=== PATIENT | male | born 1970 | race Caucasian/White ===

== ENCOUNTER 2019-12-09 13:42 | Observation (INO) | payer SELFPAY ==
--- NOTE | 2019-12-09 14:08 | ER Document Report ---
ED Medical Screen (RME) - General Stated Complaint: CHEST PAIN Time Seen by Provider: 12/09/19 13:55 TRAVEL OUTSIDE OF THE [place] IN LAST 30 DAYS: No - HPI Notes: 12/09/19 13:56 49 yr old male presents today with complaints of left-sided chest pain, kft sided chest tightness that started to radiate down his left arm while he was driving approximately an hour ago. Patient states that he has had intermittent chest pain over the last few weeks but is never had it checked out and is ignored it. His blood pressure when EMS arrived was systolically over the 200s, was given 2 nitros which relieved his chest pain from a 5/5 to a 1/5. Patient states that his father has had 2 heart attacks and his grandfather had 6 heart attacks, passing away on 6 1. Patient is a smoker, states he had stage I lung cancer last year which was surgically resected. Patient was given 324 baby aspirin and 2 nitro's by EMS. Patient's blood pressure has now normalized to 120s over 80s, heart rate is still in the 120s. Denies any nausea vomiting diarrhea. Denies any headache, blurred vision double vision or loss of vision, shortness of breath, numbness or tingling to face or bilateral upper or lower extremities. I have greeted and performed a rapid initial assessment of this patient. A comprehensive ED assessment and evaluation of the patient, analysis of test results and completion of the medical decision making process will be conducted by additional ED providers. PHYSICAL EXAMINATION: GENERAL: Well-appearing, well-nourished and in no acute distress. HEAD: Atraumatic, normocephalic. EYES: Pupils equal round extraocular movements intact, conjunctiva are normal. NECK: Normal range of motion CV: s1, s2 regular LUNGS: No respiratory distress Musculoskeletal: Normal range of motion NEUROLOGICAL: Normal speech, normal gait. SKIN: Warm, Dry, normal turgor, no rashes or lesions noted. - Related Data Allergies/Adverse Reactions: No Known Allergies Allergy (Verified 04/24/15 14:14) Past Medical History Renal/ Medical History: Reports: Hx Kidney Stones - Immunizations Hx Diphtheria, Pertussis, Tetanus Vaccination: Yes
[2019-12-09 14:34] LABS: ABSOLUTE BASOPHILS # (AUTO) 0.1 10^3/uL (0.0-0.2); ABSOLUTE EOSINOPHILS # (AUTO) 0.1 10^3/uL (0.0-0.6); ABSOLUTE LYMPHOCYTES (AUTO) 1.7 10^3/uL (0.5-4.7); ABSOLUTE MONOCYTES (AUTO) 0.5 10^3/uL (0.1-1.4); ABSOLUTE NEUT (AUTO) 6.2 10^3/uL (1.7-8.2); EOSINOPHILS % (AUTO) 1.3 % (0-6); HEMATOCRIT 47.9 % (37.9-51.0); HEMOGLOBIN 16.8 g/dL (13.5-17.0); LYMPHOCYTES % (AUTO) 19.4 % (13-45); MEAN CORPUSCULAR HEMOGLOBIN 33.6 pg (27.0-33.4); MEAN CORPUSCULAR VOLUME 96 fl (80-97); MONOCYTES % (AUTO) 5.7 % (3-13); PLATELET COUNT 154 10^3/uL (150-450); RED BLOOD COUNT 4.99 10^6/uL (4.35-5.55); RED CELL DISTRIBUTION WIDTH 14.1 % (11.5-14.0); SEGMENTED NEUTROPHILS % (AUTO) 72.6 % (42-78); TOTAL CELLS COUNTED % (AUTO) 100 %; WHITE BLOOD COUNT 8.5 10^3/uL (4.0-10.5)
[2019-12-09 14:51] LABS: ALBUMIN 4.3 g/dL (3.5-5.0); ALKALINE PHOSPHATASE 67 U/L (38-126); ANION GAP 7 (5-19); ASPARTATE AMINO TRANSFERASE 51 U/L (17-59); BILIRUBIN,DIRECT 0.4 mg/dL (0.0-0.4); BILIRUBIN,TOTAL 0.6 mg/dL (0.2-1.3); BLOOD UREA NITROGEN 9 mg/dL (7-20); CALCIUM 9.6 mg/dL (8.4-10.2); CARBON DIOXIDE 25 mmol/L (22-30); CHLORIDE 105 mmol/L (98-107); CREATINE KINASE 103 U/L (55-170); GLUCOSE 141 mg/dL (75-110); POTASSIUM 4.5 mmol/L (3.6-5.0); TOTAL PROTEIN 7.4 g/dL (6.3-8.2)
--- NOTE | 2019-12-09 15:00 | RADIOLOGY REPORT (SQ) ---
EXAM DESCRIPTION: CHEST SINGLE VIEW IMAGES COMPLETED DATE/TIME: 12/09/2019 2:51 pm REASON FOR STUDY: cp COMPARISON: None. EXAM PARAMETERS: NUMBER OF VIEWS: One view. TECHNIQUE: Single frontal radiographic view of the chest acquired. RADIATION DOSE: NA LIMITATIONS: None. FINDINGS: LUNGS AND PLEURA: No opacities, masses or pneumothorax. No pleural effusion. MEDIASTINUM AND HILAR STRUCTURES: No masses. Contour normal. HEART AND VASCULAR STRUCTURES: Heart normal in size. Normal vasculature. BONES: No acute findings. HARDWARE: None in the chest. OTHER: No other significant finding. IMPRESSION: NO ACUTE RADIOGRAPHIC FINDING IN THE CHEST. TECHNICAL DOCUMENTATION: JOB ID: [id number] [employer]- All Rights Reserved Reading location - IP/workstation name: [email or web address]
[2019-12-09 15:15] LABS: CREATINE KINASE MB 0.74 ng/mL (<4.55)
[2019-12-09 15:21] LABS: TROPONIN I < 0.012 ng/mL
--- NOTE | 2019-12-09 17:44 | ER Document Report ---
ED General - General Chief Complaint: Chest Pain Stated Complaint: CHEST PAIN Time Seen by Provider: 12/09/19 13:55 Notes: 49-year-old male history of smoking presents with chest pain. Patient says that over the last 4 months he has had exercise intolerance, shortness of breath with doing activities that you normally is capable of, and intermittent chest pain that he describes as left-sided pressure-like nonradiating chest pain associated with palpitations and shortness of breath that lasted for minutes to hours and then resolved without intervention. Patient had similar episode today while he was driving and felt extremely weak and short of breath with rapid heartbeat and called EMS. Patient given nitroglycerin by EMS which improved his pain. Patient currently pain-free and asymptomatic in ED. Patient had prior pulmonary nodule removed which was negative for cancer, note it appears to be erroneous that says previous lung cancer in chart. Patient does not follow-up regularly with a primary doctor so does not know which hypertension that he has today has been chronic. Patient with significant CAD history in father's side of family with father and grandfather having multiple heart attacks at young ages below age of 55. Patient had a stress test last year which she says was negative, has not had any cardiac eval over the last several months when symptoms have been significantly worsened. Patient denies any known cardiac history, DVT/PE/hypercoag history in self or family, recent travel/trauma/surgery/immobilization, change in chronic nonproductive cough times many years, hemoptysis, fever, syncope, back pain, abdominal pain, trauma, myalgia TRAVEL OUTSIDE OF THE [place] IN LAST 30 DAYS: No - Related Data Allergies/Adverse Reactions: No Known Allergies Allergy (Verified 04/24/15 14:14) Past Medical History - General Information source: Patient - Social History Smoking Status: Current Every Day Smoker Chew tobacco use (# tins/day): No Frequency of alcohol use: None Drug Abuse: None Family History: Reviewed & Not Pertinent, CAD Renal/ Medical History: Reports: Hx Kidney Stones - Immunizations Hx Diphtheria, Pertussis, Tetanus Vaccination: Yes Review of Systems - Review of Systems Notes: REVIEW OF SYSTEMS: CONSTITUTIONAL : Denies fever, chills, or sweats. EENT: Denies recent cold/sinus symptoms, denies throat pain CARDIOVASCULAR: +chest pain, -[place] RESPIRATORY: Denies cough, +shortness of breath. GASTROINTESTINAL: Denies abdominal pain, nausea/vomiting. GENITOURINARY: Denies difficulty urinating, painful urination. MUSCULOSKELETAL: Denies neck pain, back pain. SKIN: Denies rash or skin lesions. HEMATOLOGIC : Denies easy bruising or bleeding. LYMPHATIC: Denies swollen, enlarged glands. NEUROLOGICAL: Denies headache, denies change in gait. PSYCHIATRIC: Denies anxiety or stress or depression. Physical Exam - Vital signs Vitals: Temp Pulse Resp BP Pulse Ox 98.2 F 101 H 20 124/91 H 96 12/09/19 14:04 12/09/19 14:04 12/09/19 14:04 12/09/19 14:04 12/09/19 14:04 - Notes Notes: PHYSICAL EXAMINATION: GENERAL: Well-appearing, well-nourished and in no acute distress. HEAD: Atraumatic, normocephalic. EYES: Pupils equal round and appropriate constriction, sclera anicteric, conjunctiva are normal. ENT: nares patent, moist mucous membranes. NECK: Normal range of motion, supple without lymphadenopathy, no JVD LUNGS: Breath sounds clear to auscultation bilaterally and equal. No wheezes rales or rhonchi. HEART: Regular rate and rhythm without murmurs rubs or gallops, chest nontender ABDOMEN: Soft, nontender, no guarding, no masses, no CVAT EXTREMITIES: Normal range of motion, no pitting or edema. No cyanosis. No calf tenderness. NEUROLOGICAL: Awake, alert, conversing appropriately, moves all extremities spontaneously. PSYCH: Normal mood, normal affect. SKIN: Warm, Dry, normal turgor, no rashes or lesions noted. Course - Re-evaluation Re-evalutation: 12/09/19 17:58 Patient story concerning for unstable angina versus paroxysmal arrhythmia. EKG and initial troponin negative. Given concerning story and smoking and likely undiagnosed/untreated hypertension as risk factors unable to discharge patient for outpatient cardiology follow-up as heart score is elevated at 4. Given patient's initial tachycardia I obtained a d-dimer which is negative insufficient to rule out PE in this patient as he has no other risk factors and low pretest probability. Patient currently chest pain-free. Discussed with Dr. Mims who says that patient may need diagnostic cath and that he will evaluate patient in the morning. Discussed with Dr. Garsia who has admitted patient to observation. - Vital Signs Vital signs: Temp Pulse Resp BP Pulse Ox 98.6 F 62 17 138/87 H 100 12/10/19 00:03 12/10/19 00:03 12/10/19 00:03 12/10/19 00:03 12/10/19 00:03 - Laboratory Result Diagrams: 12/09/19 14:17 12/09/19 14:17 Laboratory results interpreted by me: 12/09/19 12/09/19 14:17 14:17 MCH 33.6 H RDW 14.1 H Glucose 141 H - EKG Interpretation by Me Additional EKG results interpreted by me: 12/10/19 02:12 Heart rate 93, sinus rhythm, no significant ST elevations or depressions, no significant T wave abnormalities, QTc 433 Discharge - Discharge Clinical Impression: Chest pain Qualifiers: Chest pain type: unspecified Qualified Code(s): R07.9 - Chest pain, unspecified Disposition: ADMITTED OBSERVATION Admitting Provider: Shelby (Hospitalist) Unit Admitted: Telemetry
[2019-12-09] MEDS ORDERED: ONDANSETRON HCL INJ/PF 4 MG/2 ML SDV IV PRN (18:06)
[2019-12-09] MEDS ORDERED: MAG HYDROX/AL HYDROX/SIMETH SUSP 30 ML UDCUP PO PRN (18:06)
[2019-12-09] MEDS ORDERED: ACETAMINOPHEN 325 MG TABLET PO PRN (18:06)
[2019-12-09] MEDS ORDERED: NITROGLYCERIN 0.4 MG/TAB 25 TAB/BOTTLE SL PRN (18:11)
--- NOTE | 2019-12-09 18:40 | PDOC H&P ---
History of Present Illness Patient complains of: chest pain, sob, palpitations History of Present Illness: JAYCEE DUENAS is a 49 year old male with no significant past medical history, presents to the hospital for evaluation of paroxysms of chest pain, palpitations and dyspnea. The symptoms sometimes occur together but sometimes okay independent of each other. He had an episode today which prompted his appearance. He describes chest pain as substernal, pressure-like, often with tingling radiating to his left arm, denies aggravating factor but improves with rest. His episode today improved with nitroglycerin which was administered by the EMS. He states he has been having the symptoms for the past several months now. He also had the symptoms at some point last year at which time he was evaluated by [facility] with a treadmill stress test which he tells me was negative. He has not seen a doctor in the past 1 year. Denies history of heart disease. Does state that his father did have heart disease as well as his grandfather. Currently chest pain is 1/10 but was bad as 8/10 earlier today. Also discusses exertional dyspnea. Past Medical History Medical History: None Past Surgical History Past Surgical History: Reports: Other - Knee surgery Social History Smoking Status: Current Every Day Smoker Electronic Cigarette use?: No Frequency of Alcohol Use: Heavy Hx Recreational Drug Use: No Drugs: None - Advance Directive Resuscitation Status: Full Code Family History Family History: CAD - And his father and grandfather. His father onset of CAD was in his 50s. Parental Family History Reviewed: Yes Children Family History Reviewed: NA Sibling(s) Family History Reviewed.: Yes Medication/Allergy Home Medications: Doxycycline Hyclate 100 mg PO BID #20 capsule 04/24/15 Fluticasone Propionate [Flonase Nasal Wilkinson 50 Mcg/Wilkinson 16 gm] 1 spray NASL DAILY #1 bottle 04/24/15 Oxycodone HCl/Acetaminophen [Percocet 5-325 mg Tablet] 1 - 2 tab PO ASDIR PRN #15 tablet 04/24/15 Promethazine HCl [Phenergan 25 mg Tablet] 25 mg PO Q6H PRN #15 tablet 04/24/15 Allergies/Adverse Reactions: No Known Allergies Allergy (Verified 04/24/15 14:14) Review of Systems Constitutional: ABSENT: chills, fatigue, fever(s) Eyes: ABSENT: visual disturbances Ears: ABSENT: hearing changes Nose, Mouth, and Throat: ABSENT: headache(s) Cardiovascular: PRESENT: chest pain, dyspnea on exertion, palpitations. ABSENT: edema, orthropnea Respiratory: PRESENT: cough, dyspnea. ABSENT: hemoptysis, sputum Gastrointestinal: ABSENT: abdominal pain, nausea, vomiting Genitourinary: ABSENT: dysuria Musculoskeletal: ABSENT: back pain Integumentary: ABSENT: diaphoresis Neurological: PRESENT: dizziness - Occurred earlier today during his palpitation episode Endocrine: ABSENT: polyuria Hematologic/Lymphatic: ABSENT: easy bruising Allergic/Immunologic: ABSENT: seasonal rhinorrhea Physical Exam Vital Signs: Temp Pulse Resp BP Pulse Ox 98.2 F 101 H 24 H 135/95 H 96 12/09/19 14:04 12/09/19 14:04 12/09/19 16:31 12/09/19 16:31 12/09/19 16:31 Intake & Output 12/08/19 12/09/19 12/10/19 06:59 06:59 06:59 Weight 100.244 kg General appearance: PRESENT: no acute distress, cooperative Head exam: PRESENT: normocephalic Eye exam: PRESENT: EOMI Neck exam: ABSENT: JVD Respiratory exam: PRESENT: clear to auscultation janeen, symmetrical, unlabored. ABSENT: stridor, tachypnea, wheezes Cardiovascular exam: PRESENT: RRR, +S1, +S2. ABSENT: diastolic murmur, systolic murmur, tachycardia GI/Abdominal exam: PRESENT: soft. ABSENT: rebound, rigid, tenderness Extremities exam: ABSENT: calf tenderness, pedal edema Neurological exam: PRESENT: alert, awake, oriented to person, oriented to place, oriented to time Psychiatric exam: ABSENT: agitated, anxious Focused psych exam: ABSENT: pressured speech Skin exam: ABSENT: jaundice Results Laboratory Results: 12/09/19 14:17 12/09/19 14:17 12/09/19 12/09/19 14:17 14:17 WBC 8.5 RBC 4.99 Hgb 16.8 Hct 47.9 MCV 96 MCH 33.6 H MCHC 35.0 RDW 14.1 H Plt Count 154 Seg Neutrophils % 72.6 Sodium 137.4 Potassium 4.5 Chloride 105 Carbon Dioxide 25 Anion Gap 7 BUN 9 Creatinine 0.96 Est GFR ( Amer) > 60 Glucose 141 H Calcium 9.6 Total Bilirubin 0.6 AST 51 Alkaline Phosphatase 67 Total Protein 7.4 Albumin 4.3 12/09/19 12/09/19 14:17 14:17 Creatine Kinase 103 CK-MB (CK-2) 0.74 Troponin I < 0.012 Impressions: Chest X-Ray 12/09/19 13:55 IMPRESSION: NO ACUTE RADIOGRAPHIC FINDING IN THE CHEST. Assessment and Plan - Diagnosis (1) Atypical chest pain Is this a current diagnosis for this admission?: Yes (2) Palpitations Is this a current diagnosis for this admission?: Yes (3) Dyspnea Is this a current diagnosis for this admission?: Yes (4) Elevated blood pressure reading Is this a current diagnosis for this admission?: Yes (5) Tobacco abuse Is this a current diagnosis for this admission?: Yes - Plan Summary Summary: Admit to observation on telemetry. Chest pain is atypical but concerning given nature of chest pain and improvement with rest and nitroglycerin. He states he had negative stress test at [facility] in 2019 EKG reviewed First troponin is negative. I will trend x3. Check echocardiogram to evaluate heart function especially in light of [place] and palpitations Uncertain if he is having paroxysms of arrhythmias-rhythm strip by EMS shows sinus tachycardia We will keep on continuous cardiac monitoring Cardiology will be consulted to see if need for stress test versus [facility] D-dimer is negative ruling out PE or dissection Sublingual nitro will be provided as needed Counseled on smoking cessation Check lipid panel hemoglobin A1c in the morning Denies history of hypertension, will monitor BP and start on antihypertensive if still persistent in the morning. - Time Time Spent with patient: 25-34 minutes Anticipated Discharge Disposition: Home, Self Care Anticipated Discharge Timeframe: within 48 hours
[2019-12-09] MEDS ORDERED: NICOTINE 14 MG/24 HR PATCH.TD24 TD PRN (19:15)
[2019-12-09] MEDS ORDERED: LOSARTAN POTASSIUM 50 MG TABLET PO ONE (19:37)
[2019-12-10 05:37] LABS: ANION GAP 9 (5-19); BLOOD UREA NITROGEN 12 mg/dL (7-20); CALCIUM 9.2 mg/dL (8.4-10.2); CARBON DIOXIDE 24 mmol/L (22-30); CHLORIDE 103 mmol/L (98-107); CHOLESTEROL 220.72 mg/dL (0-200); GLUCOSE 103 mg/dL (75-110); TRIGLYCERIDES 122 mg/dL (<150)
[2019-12-10 05:48] LABS: DIRECT LDL 163 mg/dL (<100)
[2019-12-10 09:17] LABS: FREE T3 4.64 pg/mL (2.77-5.27); FREE T4 (FREE THYROXINE) 0.94 ng/dL (0.78-2.19)
--- NOTE | 2019-12-10 09:32 | EKG REPORT ---
SEVERITY:- NORMAL ECG - SINUS RHYTHM : Confirmed by: Virgil Mims MD 10-Dec-2019 09:32:05
--- NOTE | 2019-12-10 09:33 | EKG REPORT ---
SEVERITY:- NORMAL ECG - SINUS RHYTHM : Confirmed by: Virgil Mims MD 10-Dec-2019 09:32:40
[2019-12-10] MEDS ORDERED: ENOXAPARIN SODIUM INJ 40 MG/0.4 ML DISP.SYRIN SUBCUT SCH (10:00)
[2019-12-10] MEDS ORDERED: LOSARTAN POTASSIUM 50 MG TABLET PO SCH (10:00)
--- NOTE | 2019-12-10 11:16 | XCELERA REPORT ---
[address] [address] Transthoracic Echocardiogram Report Name: JAYCEE DUENAS Age: 49 yrs Gender: Male : 1970 Patient Status: Inpatient Patient Location: [address] [place], [place] [id number] Study Date: 12/10/2019 07:53 AM History: Chest pain Height: 71 in Weight: 221 lb BSA: 2.2 m2 Procedure: A complete two-dimensional transthoracic echocardiogram was performed (2D, M-mode, spectral and color flow Doppler). The study was technically difficult with many images being suboptimal in quality. Reason For Study: chest pain, palpitations. Previous Evaluation: No previous studies were available. History: HTN. Chest pain. Ordering Physician: DAVE CHARLES Interpretation Summary Left ventricular systolic function is normal. The Ejection Fraction estimate is 55-60% The right ventricle is normal in size and function. There is no aortic valve stenosis There is a trace amount of tricuspid regurgitation Doppler findings do not suggest pulmonary hypertension. There is no pericardial effusion. MMode/2D Measurements & Calculations RVDd: 2.1 cm LVIDd: 5.3 cm FS: 33.7 % Ao root diam: 2.4 cm IVSd: 0.96 cm LVIDs: 3.5 cm EDV(Teich): 134.5 ml Ao root area: 4.4 cm2 LVPWd: 1.1 cm ESV(Teich): 51.0 ml EF(Teich): 62.1 % Doppler Measurements & Calculations MV E max adrianna: MV dec slope: Ao V2 max: LV V1 max P.5 cm/sec 329.3 cm/sec2 98.1 cm/sec 3.0 mmHg MV A max adrianna: MV dec time: 0.18 sec Ao max PG: LV V1 max: 56.2 cm/sec 3.8 mmHg 86.6 cm/sec MV E/A: 1.1 PA V2 max: 63.8 cm/sec PA max P.6 mmHg Left Ventricle The left ventricle is grossly normal size. There is mild to moderate concentric left ventricular hypertrophy. Left ventricular systolic function is normal. The Ejection Fraction estimate is 55-60%. Doppler measurements suggest pseudonormalized left ventricular relaxation, which is associated with grade II/IV or mild to moderate diastolic dysfunction. No regional wall motion abnormalities noted. Right Ventricle The right ventricle is normal in size and function. Atria The right atrium is normal. The left atrium is borderline dilated. The interatrial septum is intact with no evidence for an atrial septal defect. There is no Doppler evidence for an interatrial shunt. Mitral Valve The mitral valve is grossly normal. There is no mitral valve stenosis. There is no mitral regurgitation noted. Aortic Valve The aortic valve is not well visualized secondary to technical limitations. The aortic valve opens well. There is no aortic valve stenosis. No aortic regurgitation is present. Tricuspid Valve The tricuspid valve is normal in structure and function. There is no tricuspid stenosis. There is a trace amount of tricuspid regurgitation. Tricuspid regurgitation jet envelope not well defined to measure RV systolic pressure accurately. Doppler findings do not suggest pulmonary hypertension. Pulmonic Valve The pulmonic valve is not well visualized. There is no pulmonic valvular stenosis. There is a trace amount of pulmonic regurgitation. Great Vessels The aortic root is normal size. The inferior vena cava appeared normal and decreased > 50% with respiration (RAP 5-10 mmHg). Effusions There is no pericardial effusion. : DAVE CHARLES Anil
--- NOTE | 2019-12-10 11:34 | PDOC DISCHARGE SUMMARY ---
Impression - Admit/DC Date/PCP Admission Date/Primary Care Provider: 12/09/19 18:27 Discharge Date: 12/10/19 - Discharge Diagnosis (1) Atypical chest pain Is this a current diagnosis for this admission?: Yes (2) Palpitations Is this a current diagnosis for this admission?: Yes (3) Dyspnea Is this a current diagnosis for this admission?: Yes (4) Tobacco abuse Is this a current diagnosis for this admission?: Yes (5) Hypertension Is this a current diagnosis for this admission?: Yes (6) Hyperlipidemia Is this a current diagnosis for this admission?: Yes - Assessment Summary: Admit to observation on telemetry. Chest pain is atypical but concerning given nature of chest pain and improvement with rest and nitroglycerin. He states he had negative stress test at [facility] in 2019 EKG reviewed First troponin is negative. I will trend x3. Check echocardiogram to evaluate heart function especially in light of [place] and palpitations Uncertain if he is having paroxysms of arrhythmias-rhythm strip by EMS shows sinus tachycardia We will keep on continuous cardiac monitoring Cardiology will be consulted to see if need for stress test versus [facility] D-dimer is negative ruling out PE or dissection Sublingual nitro will be provided as needed Counseled on smoking cessation Check lipid panel hemoglobin A1c in the morning Denies history of hypertension, will monitor BP and start on antihypertensive if still persistent in the morning. - Additional Information Resuscitation Status: Full Code Discharge Diet: Cardiac Discharge Activity: Activity As Tolerated Referrals: [facility] [NO LOCAL MD] - YELENA TREVINO MD [ACTIVE STAFF] - 12/15/19 Prescriptions: Losartan Potassium [Cozaar 50 mg Tablet] 50 mg PO DAILY #30 tablet Atorvastatin Calcium [Lipitor 40 mg Tablet] 40 mg PO QHS #30 tablet Nitroglycerin [Nitrostat 0.4 mg (1/150 Gr) Tabs 25/Bottle] 1 tab SL Q5MP PRN #1 bottle PRN Reason: Home Medications: Atorvastatin Calcium [Lipitor 40 mg Tablet] 40 mg PO QHS #30 tablet 12/10/19 Losartan Potassium [Cozaar 50 mg Tablet] 50 mg PO DAILY #30 tablet 12/10/19 Nitroglycerin [Nitrostat 0.4 mg (1/150 Gr) Tabs 25/Bottle] 1 tab SL Q5MP PRN #1 bottle 12/10/19 History of Present Illiness History of Present Illness: JAYCEE DUENAS is a 49 year old male with no significant past medical history, presents to the hospital for evaluation of paroxysms of chest pain, palpitations and dyspnea. The symptoms sometimes occur together but sometimes okay independent of each other. He had an episode today which prompted his appearance. He describes chest pain as substernal, pressure-like, often with tingling radiating to his left arm, denies aggravating factor but improves with rest. His episode today improved with nitroglycerin which was administered by the EMS. He states he has been having the symptoms for the past several months now. He also had the symptoms at some point last year at which time he was evaluated by [facility] with a treadmill stress test which he tells me was negative. He has not seen a doctor in the past 1 year. Denies history of heart disease. Does state that his father did have heart disease as well as his grandfather. Currently chest pain is 1/10 but was bad as 8/10 earlier today. Also discusses exertional dyspnea. Hospital Course Hospital Course: Patient presented with chest pain, palpitations as well as dyspnea. His chest pain was atypical but has risk factors. Of note, he had a treadmill stress testing at [facility] last year which she reports was negative. On presentation, his records from EMS was reviewed which noted sinus tachycardia. Labs were unremarkable. Troponin was negative x3. EKG showed no ischemic changes. Admitted observation. He reported response to nitroglycerin tablets which were administered by EMS and states his chest pain improved from 8/10 to 3/10. Currently chest pain is resolved. Was placed on cardiac monitoring throughout hospital stay and was reviewed this morning which was negative for any arrhythmias. D-dimer obtained was negative essentially ruling out PE or dissection. Echocardiogram was obtained this morning. Have discussed the results with Dr. eYlena Trevino over the phone and he informs me that the echo was essentially unremarkable without any evidence of wall motion abnormalities or abnormal heart function Or valvular disease but did show some LVH. He was noted to be hypertensive in the hospital so I have started him on losartan. Lipid panel indicated above hyperlipidemia and have started him on atorvastatin. TSH was abnormal the high but T4 and T3 were normal. He has been instructed to repeat TFTs in 4 to 6 weeks. I will discuss case elaborately with Dr. Yelena Trevino on the phone who will make an appointment for patient to see him in the office next week Sunday to set up left heart catheterization to be done as outpatient for definitive testing for coronary artery disease. Patient is eager to go home today and does not want to wait in the hospital past today. He has been discharged with medication prescriptions sent to his pharmacy and instructions to set up with a primary care provider and to follow-up with Dr. Trevino in the office. Physical Exam Vital Signs: Temp Pulse Resp BP Pulse Ox 98.6 F 57 L 17 138/87 H 100 12/10/19 08:44 12/10/19 07:00 12/10/19 00:03 12/10/19 00:03 12/10/19 00:03 Intake & Output 12/09/19 12/10/19 12/11/19 06:59 06:59 06:59 Intake Total 100 Balance 100 Weight 95.5 kg General appearance: PRESENT: no acute distress, cooperative Neck exam: ABSENT: JVD Respiratory exam: PRESENT: clear to auscultation janeen, symmetrical, unlabored. ABSENT: tachypnea Cardiovascular exam: PRESENT: RRR, +S1, +S2. ABSENT: diastolic murmur, systolic murmur, tachycardia Neurological exam: PRESENT: alert, awake, oriented to person, oriented to place, oriented to time Results Laboratory Results: WBC 8.5 10^3/uL (4.0-10.5) 12/09/19 14:17 RBC 4.99 10^6/uL (4.35-5.55) 12/09/19 14:17 Hgb 16.8 g/dL (13.5-17.0) 12/09/19 14:17 Hct 47.9 % (37.9-51.0) 12/09/19 14:17 MCV 96 fl (80-97) 12/09/19 14:17 MCH 33.6 pg (27.0-33.4) H 12/09/19 14:17 MCHC 35.0 g/dL (32.0-36.0) 12/09/19 14:17 RDW 14.1 % (11.5-14.0) H 12/09/19 14:17 Plt Count 154 10^3/uL (150-450) 12/09/19 14:17 Lymph % (Auto) 19.4 % (13-45) 12/09/19 14:17 Tillman % (Auto) 5.7 % (3-13) 12/09/19 14:17 Eos % (Auto) 1.3 % (0-6) 12/09/19 14:17 Baso % (Auto) 1.0 % (0-2) 12/09/19 14:17 Absolute Neuts (auto) 6.2 10^3/uL (1.7-8.2) 12/09/19 14:17 Absolute Lymphs (auto) 1.7 10^3/uL (0.5-4.7) 12/09/19 14:17 Absolute Monos (auto) 0.5 10^3/uL (0.1-1.4) 12/09/19 14:17 Absolute Eos (auto) 0.1 10^3/uL (0.0-0.6) 12/09/19 14:17 Absolute Basos (auto) 0.1 10^3/uL (0.0-0.2) 12/09/19 14:17 Seg Neutrophils % 72.6 % (42-78) 12/09/19 14:17 D-Dimer < 0.27 ug/mL (0.00-0.50) 12/09/19 14:17 Sodium 135.6 mmol/L (137-145) L 12/10/19 04:54 Potassium 4.0 mmol/L (3.6-5.0) 12/10/19 04:54 Chloride 103 mmol/L (98-107) 12/10/19 04:54 Carbon Dioxide 24 mmol/L (22-30) 12/10/19 04:54 Anion Gap 9 (5-19) 12/10/19 04:54 BUN 12 mg/dL (7-20) 12/10/19 04:54 Creatinine 1.06 mg/dL (0.52-1.25) 12/10/19 04:54 Est GFR ( Amer) > 60 (>60) 12/10/19 04:54 Est GFR (MDRD) Non-Af > 60 (>60) 12/10/19 04:54 Glucose 103 mg/dL (75-110) 12/10/19 04:54 Hemoglobin A1c % 5.6 % (4.7-6.0) 12/10/19 04:54 Calcium 9.2 mg/dL (8.4-10.2) 12/10/19 04:54 Total Bilirubin 0.6 mg/dL (0.2-1.3) 12/09/19 14:17 Direct Bilirubin 0.4 mg/dL (0.0-0.4) 12/09/19 14:17 Neonat Total Bilirubin Not Reportable 12/09/19 14:17 Neonat Direct Bilirubin Not Reportable 12/09/19 14:17 Neonat Indirect Bili Not Reportable 12/09/19 14:17 AST 51 U/L (17-59) 12/09/19 14:17 ALT 41 U/L (<50) 12/09/19 14:17 Alkaline Phosphatase 67 U/L (38-126) 12/09/19 14:17 Creatine Kinase 103 U/L (55-170) 12/09/19 14:17 CK-MB (CK-2) 0.74 ng/mL (<4.55) 12/09/19 14:17 Troponin I < 0.012 ng/mL 12/09/19 22:10 Total Protein 7.4 g/dL (6.3-8.2) 12/09/19 14:17 Albumin 4.3 g/dL (3.5-5.0) 12/09/19 14:17 Triglycerides 122 mg/dL (<150) 12/10/19 04:54 Cholesterol 220.72 mg/dL (0-200) H 12/10/19 04:54 LDL Cholesterol Direct 163 mg/dL (<100) H 12/10/19 04:54 VLDL Cholesterol 24.0 mg/dL (10-31) 12/10/19 04:54 HDL Cholesterol 51 mg/dL (>40) 12/10/19 04:54 TSH 7.46 uIU/mL (0.47-4.68) H 12/10/19 04:54 Free T4 0.94 ng/dL (0.78-2.19) 12/10/19 04:54 Free T3 pg/mL 4.64 pg/mL (2.77-5.27) 12/10/19 04:54 12/09/19 12/09/19 12/09/19 14:17 18:30 22:10 CK-MB (CK-2) 0.74 Troponin I < 0.012 < 0.012 < 0.012 Impressions: Chest X-Ray 12/09/19 13:55 IMPRESSION: NO ACUTE RADIOGRAPHIC FINDING IN THE CHEST. Plan Time Spent: Less than 30 Minutes Stroke Is this a Stroke Patient?: No Acute Heart Failure - Is this a Heart Failure Patient?: No
[2019-12-10 12:55] VITALS: BP 134/86
[2019-12-10] MEDS ORDERED: ATORVASTATIN CALCIUM 40 MG TABLET PO SCH (22:00)
== END 2019-12-10 12:54 | disposition home or self-care (01) ==
LOC: ER 13:42 → EH 18:27 → 4W 19:48
PROVIDERS: ADMIT Internal Medicine; ATTEND Internal Medicine
DX: R07.89 Other chest pain (principal); R00.2 Palpitations; R06.09 Other forms of dyspnea; I10 Essential (primary) hypertension; E78.5 Hyperlipidemia, unspecified; R00.0 Tachycardia, unspecified; R05 Cough; F17.200 Nicotine dependence, unspecified, uncomplicated; R42 Dizziness and giddiness; R53.1 Weakness; Z82.49 Family history of ischemic heart disease and other diseases of the circulatory system; Z86.018 Personal history of other benign neoplasm
CPT/HCPCS: 93005 ×2; 99285; 36415 ×2; 84439; 82553; 82550; 84443; 85025; 80048; 80053; 84484; 84481; 83036; 85379; 80061; 93306; 71045; 93010 ×2; G0378 ×3; J1650